=== PATIENT | male | born 1990 | race Hispanic/Latino ===

== ENCOUNTER 2019-09-05 11:45 | Emergency (ER) | payer SELFPAY ==
[2019-09-05] MEDS ORDERED: Adacel (T-DAP) 0.5 ML SYRINGE ONE (13:31)
--- NOTE | 2019-09-05 13:49 | RAD ---
LEFT INDEX FINGER 3 VIEWS: Date: 09/05/19 HISTORY: Nail puncture yesterday. FINDINGS: No radiopaque foreign bodies are seen. No underlying fracture. IMPRESSION: No evidence of fracture or radiopaque foreign body. POS: [id number]
== END 2019-09-05 14:18 | disposition home or self-care (01) ==
LOC: ERS 11:45
DX: S61.231A Puncture wound without foreign body of left index finger without damage to nail, initial encounter (principal); W45.0XXA Nail entering through skin, initial encounter
CPT/HCPCS: 90471; 90715